=== PATIENT | male | born 1980 | race Caucasian/White ===

== ENCOUNTER 2018-07-23 17:51 | Emergency (ER) | END 2018-07-23 19:35 | disposition home or self-care (01) ==

== ENCOUNTER 2019-01-06 23:23 | Emergency (ER) | payer OTHER ==
[~2019-01-06] VITALS: Ht 182.9 cm; Wt 99.0 kg
[~2019-01-06 23:23] MED LIST: CYCL10TA7 PO; OXYC-203 PO
[2019-01-06 23:29] VITALS: Ht 182.9 cm; Wt 99.0 kg
--- NOTE | 2019-01-07 03:27 | ERD ---
ER Documentation Chief Complaint Chief Complaint bib self, cc: left sided pain due to sciatica, since wed. HPI This is a 38-year-old male who presents here in the emergency department with complaints of left-sided back pain that radiates to left lower extremity. Has history of sciatica. Has MRI done. Stated that she takes [place], Flexeril, Motrin. Stated that his pain is been going on and off for 7 to 8 months. Denies headache, head injury, loss of consciousness, dizziness, neck pain, neck stiffness, throat pain, difficulty swallowing, difficulty breathing lying flat, shoulder pain, chest pain, abdominal pain, nausea, vomiting, constipation, diarrhea, urinary symptoms, loss of bowel and bladder control, trauma, injury, falls, difficulty walking due to pain, numbness or tingling sensation, calf pain, recent travel, recent major surgery in the last 3 weeks, calf pain, recent long travel, recent exposure to any illness, recent antibiotic use in the last 3 months, fever, chills, seizures. Past medical history: Surgical history: Social: Denies smoking, use of alcoholic beverages, use of illegal drugs. ROS All systems reviewed and are negative except as per history of present illness. Medications Home Meds Active Scripts Diclofenac Sodium* (Diclofenac Sodium*) 25 Mg Tablet.dr, 25 MG PO BID PRN for PAIN, #20 TAB Prov:DESTIN TARIQ 01/07/19 Tramadol HCl (Tramadol HCl) 50 Mg Tablet, 50 MG PO Q4 PRN for SEVERE PAIN LEVEL 7-10, #5 TAB Prov:MARITZAILADESTIN [place] 01/07/19 Metaxalone* (Skelaxin*) 800 Mg Tablet, 800 MG PO QID PRN for MUSCLE SPASMS, #20 TAB Prov:DESTIN TARIQ F 01/07/19 Cyclobenzaprine Hcl* (Cyclobenzaprine Hcl*) 10 Mg Tablet, 10 MG PO TID, #20 TAB Prov:CLAUDIA NICOLE MD 07/23/18 Oxycodone HCl/Acetaminophen (Percocet 7.5-325 mg Tablet) 1 Each Tablet, 1 EACH PO TID, #14 TAB Prov:CLAUDIA NICOLE MD 07/23/18 Allergies Allergies: Coded Allergies: No Known Drug Allergies (Verified Allergy, Unknown, 12/1/18) PMhx/Soc Hx Miscellaneous Medical Probl: Yes (chronc back pain) Hx Alcohol Use: Yes (socially) Hx Substance Use: No Hx Tobacco Use: No Smoking Status: Never smoker Physical Exam Vitals Physical Exam Const: No acute distress Head: Atraumatic Eyes: Normal Conjunctiva ENT: Normal External Ears, Nose and Mouth. Neck: Full range of motion. No meningismus. Resp: Clear to auscultation bilaterally Cardio: Regular rate and rhythm, no murmurs Abd: Soft, non tender, non distended. Normal bowel sounds Skin: No petechiae or rashes Back: No midline or flank tenderness. Bilateral hips are stable and unremarkable. No saddle anesthesia. Ext: No cyanosis, or edema. Positive for left straight leg test. Negative for right straight leg test. Symmetrical knees. No calf tenderness bilaterally. No neurovascular deficit. Neur: Awake and alert. No neurological deficits. Psych: Normal Mood and Affect Results 24 hrs Current Medications Medications Dose Sig/Jenn Start Time Status Last (Trade) Ordered Route PRN Stop Time Admin Dose Reason Admin Morphine 4 mg ONCE STAT 01/07/19 DC 01/07/19 Sulfate IM 03:28 03:43 (morphine) 01/07/19 03:29 10 mg ONCE ONCE 01/07/19 DC 01/07/19 Dexamethasone IM 03:30 03:43 (Decadron) 01/07/19 03:31 Procedures/MDM Diagnostic tests: Clinical exam. Treatment: Toradol IM. Morphine IM. Re-evaluation: Denies back pain, lower extremity pain. No calf tenderness. No saddle anesthesia. No neurovascular deficit. Stated that he feels much better at this time and that he is ready to go home. Differential diagnosis I have low suspicion for pyelonephritis, septic stone, kidney stone, obstructing kidney stone, compartment syndrome, cauda equina syndrome. Final diagnosis: Back pain with sciatica. Chronic back pain. Prescription: Skelaxin. Diclofenac. Tramadol. Follow-up with PCP in the next 24-48 hours. PCP to refer patient to pain specialist in the next 4 to 5 days. Come back here in the emergency department for any new symptoms or any worsening symptoms. All questions and concerns were answered. Patient and family members verbalized understanding and agreed with plan of care. Hemodynamically stable on discharge. Departure Diagnosis: Primary Impression: Chronic back pain Additional Impression: Sciatica Condition: Stable Additional Instructions: Follow-up with PCP in the next 24-48 hours. PCP to refer patient to pain specialist in the next 4 to 5 days. Come back here in the emergency department for any new symptoms or any worsening symptoms. DESTIN TARIQ January 07, 2019 03:27
[2019-01-07] MEDS ORDERED: morphine 4 MG/ML VIAL IM STA (03:28)
[2019-01-07] MEDS ORDERED: DEXAMETHASONE 10 MG/ML 1 ML INJ IM ONE (03:30)
[2019-01-07] MEDS ORDERED: META-121 PO (04:00)
[2019-01-07] MEDS ORDERED: TRAM50TA2 PO (04:00)
[2019-01-07] MEDS ORDERED: DICL25TA11 PO (04:08)
[2019-01-07 04:23] VITALS: BP 129/71; PULSE 71; RESP 18
== END 2019-01-07 04:24 | disposition home or self-care (01) ==
LOC: FTE 23:23
DX: M54.42 Lumbago with sciatica, left side (principal)
CPT/HCPCS: 96372; 99284; J1100; J2270

== ENCOUNTER 2019-04-22 03:25 | Emergency (ER) | payer OTHER ==
[~2019-04-22] VITALS: Ht 185.4 cm; Wt 99.0 kg
[~2019-04-22 03:25] MED LIST changes: +DICL25TA11 PO; +META-121 PO; +TRAM50TA2 PO
[2019-04-22 03:27] VITALS: Ht 185.4 cm; Wt 99.0 kg
[2019-04-22] MEDS ORDERED: SOD CHLORIDE 0.9% 1,000 ML IV STA (06:25)
[2019-04-22] MEDS ORDERED: HYDROCODONE/APAP (5/325) TAB PO ONE (07:30)
[2019-04-22 08:35] VITALS: BP 112/84; PULSE 76; RESP 19
== END 2019-04-22 08:36 | disposition left against medical advice (07) ==
LOC: E/R 03:25
DX: M96.89 Other intraoperative and postprocedural complications and disorders of the musculoskeletal system (principal); R40.2142 Coma scale, eyes open, spontaneous, at arrival to emergency department; R40.2252 Coma scale, best verbal response, oriented, at arrival to emergency department; R40.2362 Coma scale, best motor response, obeys commands, at arrival to emergency department
CPT/HCPCS: 80053; 81001; 83690; 85025; 87040; 99284; J7030; 81003